=== PATIENT | male | born 1995 | race Caucasian/White ===

== ENCOUNTER 2019-01-10 19:45 | Emergency (ER) | payer BC ==
[2019-01-10] MEDS ORDERED: Ketorolac 60 MG/2 ML SDV IM ONE (20:03)
--- NOTE | 2019-01-10 20:14 | EDM.PDOC ---
ED HPI GENERAL MEDICAL PROBLEM - General Chief Complaint: Lower Extremity Injury/Pain Stated Complaint: right ankle pain Time Seen by Provider: 01/10/19 19:55 Source of Information: Reports: Patient History Limitations: Reports: No Limitations - History of Present Illness INITIAL COMMENTS - FREE TEXT/NARRATIVE: pt an hour ago went up for a lay up came down on his right foot with a sharp pain to top of his foot pt states was able to bear weight after but painful 7/ 10 and 4/10 while sitting Onset: Today Duration: Hour(s): Location: Reports: Lower Extremity, Right Quality: Reports: Throbbing Severity: Moderate Improves with: Reports: Rest Worsens with: Reports: Movement Associated Symptoms: Reports: No Other Symptoms Treatments [employer] HE[employer] ASSOCIATE: Denies: Acetaminophen, Aspirin, NSAIDS Right Ankle Pain Score (Numeric/FACES): 5 - Related Data Allergies Allergy/AdvReac Type Severity Reaction Status Date / Time Penicillins Allergy Hives Verified 01/10/19 19:48 Home Meds: Home Meds Meloxicam [Mobic] 10 mg PO ASDIRECTED PRN 01/10/19 [History] Past Medical History - Past Health History Medical/Surgical History: Denies Medical/Surgical History Social & Family History - Tobacco Use Smoking Status *Q: Never Smoker Review of Systems - Review of Systems Review Of Systems: See Below Constitutional: Reports: No Symptoms Eyes: Reports: No Symptoms GI/Abdominal: Reports: No Symptoms Musculoskeletal: Reports: Foot Pain, Muscle Pain. Denies: Back Pain, Hand Pain , Leg Pain, Joint Pain, Joint Swelling, Muscle Stiffness Skin: Reports: No Symptoms Neurological: Reports: No Symptoms Psychiatric: Reports: No Symptoms ED EXAM, GENERAL - Physical Exam Exam: See Below Exam Limited By: No Limitations General Appearance: Alert, WD/WN, No Apparent Distress, Other (PT text messaging on phone in no acute distress) Respiratory/Chest: No Respiratory Distress Extremities: Normal Inspection, Normal Range of Motion, No Pedal Edema, Normal Capillary Refill, Other (Exam to the right ankle/foot patient's neurovascularly intact with full range of motion positive dorsalis pedis posterior tibialis normal cap refill equal soft touch sensation he has no tenderness palpation over the tibial plateau area no tenderness palpation over the medial lateral malleolus positive tenderness palpation over the navicular the foot there is no noted edema to the joint malleolus is on the foot there is no tenderness to palpation over the fifth metatarsal or axial load). No: Non-Tender Neurological: Alert, Oriented, CN II-XII Intact, Normal Cognition, Normal Gait, Normal Reflexes, No Motor/Sensory Deficits Skin Exam: Warm, Dry, Intact, Normal Color, No Rash Course - Vital Signs Text/Narrative:: Three-view x-ray of the foot reveals no acute findings joint space was intact no noted fractures of the malleolus bilateral Patient was educated apply ice 30 minutes on 30 minutes off as much tolerated for next 24-48 hours take [id number] Tylenol ,Motrin as directed on the bottle follow with primary care provider next 2-3 days if pain persists for re-x -ray patient gave verbal understanding Last Recorded V/S: Last Vital Signs Temp 36.2 C 01/10/19 19:50 Pulse 95 01/10/19 19:50 Resp 16 01/10/19 19:50 BP 140/83 01/10/19 19:50 Pulse Ox 98 01/10/19 19:50 - Orders/Labs/Meds Meds: Medications Discontinued Medications Generic Name Dose Route Start Last Admin Trade Name Estela PRSabina Reason Stop Dose Admin Ketorolac Tromethamine 60 mg 01/10/19 20:03 01/10/19 20:20 Toradol IM 01/10/19 20:04 60 mg ONETIME ONE Administration Departure - Departure Time of Disposition: 20:30 Disposition: Home, Self-Care 01 Condition: Good Clinical Impression: Sprain of foot, right - Discharge Information *PRESCRIPTION DRUG MONITORING PROGRAM REVIEWED*: No *COPY OF PRESCRIPTION DRUG MONITORING REPORT IN PATIENT CESAR: No Instructions: Foot Sprain Referrals: PCP,Not In Area [Primary Care Provider] - Forms: ED Department Discharge Additional Instructions: iceto the area 30 mins on 30 mins off for the next 24 hrs take over the counter motrin , tylenol follow directions on the box returm to the ER if anyting gets worse or changes follow up with a primarp provider in 2-3 days in pain persist - Problem List & Annotations (1) Sprain of foot, right SNOMED Code(s): 43922730 Code(s): S93.601A - UNSPECIFIED SPRAIN OF RIGHT FOOT, INITIAL ENCOUNTER Status: Acute
--- NOTE | 2019-01-10 20:58 | CR ---
[id number] RAD/RAD Foot Right 3V Min EXAM: 3 VIEWS RIGHT FOOT INDICATION: PAIN COMPARISON: None. DISCUSSION: No fracture, dislocation or other osseous abnormality. IMPRESSION: 1. Negative exam. Benjie Parker DO 01/10/19 0161 Thank you for allowing us to participate in the care of your patient.
== END 2019-01-10 21:18 | disposition home or self-care (01) ==
LOC: VM.ED 19:45
DX: S93.601A Unspecified sprain of right foot, initial encounter (principal); Z88.0 Allergy status to penicillin; X58.XXXA Exposure to other specified factors, initial encounter; Y93.67 Activity, basketball
CPT/HCPCS: 73630; 96372; 99283; J1885